=== PATIENT | male | born 1980 | race Caucasian/White ===

== ENCOUNTER 2016-11-30 12:30 | Outpatient (RCR) | payer MEDICAID | END 2017-02-11 13:29 | disposition home or self-care (01) | LOC: WSC 12:30 → WSPT 12:30 → WSC 02-11 13:29 | DX: M54.5 Low back pain (principal) | CPT/HCPCS: G0283-GP ==

== ENCOUNTER → 2017-04-22 | Outpatient (REF) ==
[2017-04-22 18:54] LABS: THYROID STIMULATING HORMONE 0.617 uIU/mL (0.465-4.680)
== END ==
LOC: ZLAB.WCH 18:04
PROVIDERS: Family Medicine
DX: Z01.89 Encounter for other specified special examinations (principal)

== ENCOUNTER → 2017-09-09 | Outpatient (CLI) | payer BC | LOC: COL.RAD 16:03 | DX: N50.3 Cyst of epididymis (principal) ==

== ENCOUNTER → 2017-10-19 | Outpatient (CLI) | payer BC | LOC: COL.RAD 14:19 | DX: M50.121 Cervical disc disorder at C4-C5 level with radiculopathy (principal) ==

== ENCOUNTER → 2018-07-26 | Outpatient (CLI) | payer BC | LOC: COL.RAD 06:54 | DX: M71.22 Synovial cyst of popliteal space [Baker], left knee (principal); M25.462 Effusion, left knee ==

== ENCOUNTER 2019-03-28 12:34 | Emergency (ER) | payer BC ==
[~2019-03-28] VITALS: Ht 172.7 cm; Wt 81.8 kg
[2019-03-28 12:40] VITALS: BP 152/97; TEMP 99
[2019-03-28] MEDS ORDERED: AMOXICILLIN 8751 TAB PO (12:42)
[2019-03-28] MEDS ORDERED: PRINIVIL40 MG PO (12:42)
[2019-03-28] MEDS ORDERED: NORVASC 5MG5 MG/TAB PO (12:43)
[2019-03-28] MEDS ORDERED: XANAX 1MG1 MG PO (12:43)
[2019-03-28] MEDS ORDERED: NORCO 325 MG-51 TAB PO (13:51)
[2019-03-28 14:09] VITALS: PULSE 86
== END 2019-03-28 14:08 | disposition home or self-care (01) ==
LOC: COL.ER 12:34
DX: S61.213A Laceration without foreign body of left middle finger without damage to nail, initial encounter (principal); I10 Essential (primary) hypertension; Z23 Encounter for immunization; W26.0XXA Contact with knife, initial encounter; Y92.009 Unspecified place in unspecified non-institutional (private) residence as the place of occurrence of the external cause

== ENCOUNTER → 2020-02-29 | Outpatient (CLI) | payer BC ==
[~2020-02-29] MED LIST: AMOXICILLIN 8751 TAB PO; NORCO 325 MG-51 TAB PO; NORVASC 5MG5 MG/TAB PO; PRINIVIL40 MG PO; XANAX 1MG1 MG PO
== END ==
LOC: COL.RAD 08:15
DX: M47.22 Other spondylosis with radiculopathy, cervical region (principal); M48.02 Spinal stenosis, cervical region; M48.061 Spinal stenosis, lumbar region without neurogenic claudication; M51.15 Intervertebral disc disorders with radiculopathy, thoracolumbar region

== ENCOUNTER 2021-01-19 09:38 | Emergency (ER) | payer BC ==
[~2021-01-19] VITALS: Ht 172.7 cm; Wt 84.1 kg
[2021-01-19 09:46] VITALS: TEMP 98.2
[2021-01-19] MEDS ORDERED: CEPHALEXIN500 M1 PO (10:48)
[2021-01-19 11:15] VITALS: BP 135/96; PULSE 88
== END 2021-01-19 11:00 | disposition home or self-care (01) ==
LOC: COL.ER 09:38
DX: S61.431A Puncture wound without foreign body of right hand, initial encounter (principal); F17.210 Nicotine dependence, cigarettes, uncomplicated; W26.0XXA Contact with knife, initial encounter

== ENCOUNTER 2021-10-29 16:30 | Outpatient (RCR) | payer BC ==
[~2021-10-29 16:30] MED LIST changes: +CEPHALEXIN500 M1 PO
== END 2021-11-09 | disposition home or self-care (01) ==
LOC: WSPT
DX: M54.50 Low back pain, unspecified (principal)

== ENCOUNTER 2021-12-09 11:00 | Outpatient (RCR) | payer BC | END 2021-12-10 | disposition home or self-care (01) | LOC: WSPT | DX: M54.50 Low back pain, unspecified (principal) | CPT/HCPCS: G0283-GP ==

== ENCOUNTER 2022-01-06 08:00 | Outpatient (RCR) | payer BC | END 2022-01-09 | disposition home or self-care (01) | LOC: WSPT | DX: M54.50 Low back pain, unspecified (principal) | CPT/HCPCS: G0283-GP ==

== ENCOUNTER 2022-02-16 08:00 | Outpatient (RCR) | payer BC | END 2022-02-16 16:00 | disposition home or self-care (01) | LOC: WSPT 08:00 | DX: M54.50 Low back pain, unspecified (principal) ==

== ENCOUNTER 2022-04-17 10:22 | Emergency (ER) | payer BC ==
[~2022-04-17] VITALS: Ht 172.7 cm; Wt 72.7 kg
[2022-04-17 10:26] VITALS: BP 163/99; TEMP 98.4
[2022-04-17 11:53] VITALS: PULSE 62
== END 2022-04-17 11:53 | disposition home or self-care (01) ==
LOC: COL.ER 10:22
DX: M54.2 Cervicalgia (principal); M25.552 Pain in left hip; M25.551 Pain in right hip; M54.50 Low back pain, unspecified; G89.29 Other chronic pain; F17.200 Nicotine dependence, unspecified, uncomplicated; Z79.891 Long term (current) use of opiate analgesic; X50.1XXA Overexertion from prolonged static or awkward postures, initial encounter

== ENCOUNTER 2022-05-10 13:52 | Emergency (ER) | payer BC ==
[~2022-05-10] VITALS: Ht 175.3 cm; Wt 72.7 kg
[2022-05-10 14:03] VITALS: TEMP 98.2
[2022-05-10 17:50] VITALS: BP 117/75; PULSE 71
== END 2022-05-10 17:53 | disposition home or self-care (01) ==
LOC: COL.ER 13:52
DX: L05.01 Pilonidal cyst with abscess (principal); Z87.891 Personal history of nicotine dependence
CPT/HCPCS: J0696

== ENCOUNTER 2022-06-08 09:47 | Emergency (ER) | payer BC ==
[~2022-06-08] VITALS: Ht 175.3 cm; Wt 74.1 kg
[2022-06-08 09:59] VITALS: BP 123/81; PULSE 83; TEMP 97.8
[2022-06-08] MEDS ORDERED: DAZIDOX10 MG PO (10:11)
[2022-06-08] MEDS ORDERED: KLONOPIN 1MG1 MG PO (10:11)
== END 2022-06-08 11:12 | disposition home or self-care (01) ==
LOC: COL.ER 09:47
DX: M54.12 Radiculopathy, cervical region (principal); G89.29 Other chronic pain; M54.9 Dorsalgia, unspecified; F17.200 Nicotine dependence, unspecified, uncomplicated
CPT/HCPCS: J1885; J2360

== ENCOUNTER 2023-06-25 19:58 | Emergency (ER) | payer SELFPAY ==
[~2023-06-25] VITALS: Ht 172.7 cm; Wt 81.8 kg
[2023-06-25 19:58] VITALS: TEMP 98.9
[~2023-06-25 19:58] MED LIST changes: +DAZIDOX10 MG PO; +KLONOPIN 1MG1 MG PO
[2023-06-25 20:17] LABS: BASO # 0.1 K/mm3 (0.0-0.2); BASO % 0.7 % (0.0-2.0); EOS # 0.2 K/mm3 (0.0-0.7); EOS % 1.2 % (0.0-4.0); GRAN # 8.7 K/mm3 (1.4-6.5); GRAN % 63.2 % (42.2-75.2); HEMATOCRIT 45.3 % (42.0-52.0); HEMOGLOBIN 15.5 g/dl (13.5-18.0); LYMPH # 3.8 K/mm3 (1.2-3.4); LYMPH % 27.4 % (20.0-51.0); MEAN CELL VOLUME 92 fl (80.0-100.0); MEAN CORPUSCULAR HEMOGLOBIN 32 pg (27-31); MEAN CORPUSCULAR HGB CONC 34 g/dl (33.0-37.0); MEAN PLATELET VOLUME 8.8 fl (7.4-10.4); MONO % 7.1 % (1.7-9.3); PLATELET COUNT 324 K/mm3 (130-400); RED BLOOD COUNT 4.92 M/mm3 (4.20-5.60); REDCELL DISTRIBUTION WIDTH-CV 11.9 % (11.5-14.5)
[2023-06-25 20:32] LABS: ALANINE AMINOTRANSFERASE 18 U/L (0-55); ALBUMIN 4.2 gm/dL (3.5-5.0); ALKALINE PHOSPHATASE 91 U/L (40-150); ANION GAP 15 mmol/L (7-16); AST,SGOT 15 U/L (5-34); BILIRUBIN,TOTAL 0.3 mg/dL (0.2-1.2); BLOOD UREA NITROGEN 12 mg/dL (9-21); C-REACTIVE PROTEIN 0.42 mg/dL (0.00-0.50); CALCIUM 9.6 mg/dL (8.4-10.2); CARBON DIOXIDE 21 mmol/L (22-29); CHLORIDE 106 mmol/L (98-107); CREATININE, serum 0.95 mg/dL (0.72-1.25); GLUCOSE 117 mg/dL (70-99); POTASSIUM 4.3 mmol/L (3.5-4.5); SODIUM 142 mmol/L (136-145); TOTAL PROTEIN 7.1 gm/dL (6.2-8.1)
[2023-06-25 20:35] LABS: ALCOHOL(ethanol),MEDICAL < 10 mg/dL (0-10)
[2023-06-25 20:53] LABS: TROPONIN-I < 0.010 ng/mL (0.00-0.033)
[2023-06-25 21:30] VITALS: BP 139/86; PULSE 81
== END 2023-06-25 21:41 | disposition home or self-care (01) ==
LOC: COL.ER 19:58
PROVIDERS: Nurse Practitioner Primary Care
DX: M54.2 Cervicalgia (principal); R25.1 Tremor, unspecified; G89.29 Other chronic pain; F41.9 Anxiety disorder, unspecified; M54.9 Dorsalgia, unspecified; Z79.899 Other long term (current) drug therapy; Z79.891 Long term (current) use of opiate analgesic; W10.8XXA Fall (on) (from) other stairs and steps, initial encounter

== ENCOUNTER → 2024-01-06 | Outpatient (CLI) | payer OTHER ==
[~2024-01-06] MED LIST changes: +Gadoterate 15 ML VIAL IV ONE
== END ==
LOC: COL.RAD 11:39
DX: M47.816 Spondylosis without myelopathy or radiculopathy, lumbar region (principal); M43.10 Spondylolisthesis, site unspecified
CPT/HCPCS: A9575

== ENCOUNTER 2024-07-04 06:45 | Emergency (ER) | payer OTHER ==
[~2024-07-04] VITALS: Ht 170.2 cm; Wt 79.5 kg
[~2024-07-04 06:45] MED LIST changes: -Gadoterate 15 ML VIAL IV ONE
[2024-07-04 06:50] VITALS: TEMP 97.8
[2024-07-04] MEDS ORDERED: NS 1,000 ML IV ONE (07:15)
[2024-07-04] MEDS ORDERED: fentaNYL 50 MCG/ML 2 ML VIAL IV ONE (07:15)
[2024-07-04] MEDS ORDERED: Ondansetron 4 MG/2 ML VIAL IV ONE (07:15)
[2024-07-04] MEDS ORDERED: Iohexol 300 - 100 ML VIAL IV ONE (08:00)
[2024-07-04] MEDS ORDERED: NS 100 ML IV SCH (08:00)
[2024-07-04 08:01] LABS: BASO # 0.1 K/mm3 (0.0-0.2); BASO % 0.7 % (0.0-2.0); EOS # 0.2 K/mm3 (0.0-0.7); EOS % 1.6 % (0.0-4.0); GRAN # 7.9 K/mm3 (1.4-6.5); GRAN % 68.6 % (42.2-75.2); HEMATOCRIT 46.4 % (42.0-52.0); HEMOGLOBIN 15.7 g/dl (13.5-18.0); LYMPH # 2.5 K/mm3 (1.2-3.4); LYMPH % 21.9 % (20.0-51.0); MEAN CELL VOLUME 92 fl (80.0-100.0); MEAN CORPUSCULAR HEMOGLOBIN 31 pg (27-31); MEAN CORPUSCULAR HGB CONC 34 g/dl (33.0-37.0); MEAN PLATELET VOLUME 9.3 fl (7.4-10.4); MONO # 0.8 K/mm3 (0.1-0.6); PLATELET COUNT 285 K/mm3 (130-400); RED BLOOD COUNT 5.02 M/mm3 (4.20-5.60); REDCELL DISTRIBUTION WIDTH-CV 12.3 % (11.5-14.5)
[2024-07-04 08:24] LABS: ALBUMIN 4.3 g/dL (3.5-5.0); BILIRUBIN,TOTAL 0.6 mg/dL (0.2-1.2); CALCIUM 9.9 mg/dL (8.4-10.2); CREATININE, serum 0.98 mg/dL (0.72-1.25); POTASSIUM 4.4 mEq/L (3.5-4.5); TOTAL PROTEIN 7.7 g/dl (6.2-8.1)
[2024-07-04 08:30] LABS: TROPONIN-I 0.015 ng/mL (0.00-0.033)
[2024-07-04 09:24] LABS: URINE APPEARANCE CLEAR (CLEAR/HAZY); URINE BLOOD NEGATIVE (NEGATIVE); URINE COLOR YELLOW (YELLOW); URINE GLUCOSE NEGATIVE (NEGATIVE); URINE KETONE NEGATIVE (NEGATIVE); URINE NITRATE NEGATIVE (NEGATIVE); URINE PROTEIN(semi-quant) NEGATIVE (NEGATIVE); URINE UROBILINOGEN 0.2 E.U/dL (0.2-1.0)
[2024-07-04 10:15] LABS: COLLECTION METHOD CLEAN CATCH
[2024-07-04] MEDS ORDERED: ZOFRAN ODT4 MG PO (10:23)
[2024-07-04] MEDS ORDERED: NORCO 325 MG-51 TAB PO (10:23)
[2024-07-04 11:19] VITALS: BP 152/105; PULSE 71
== END 2024-07-04 11:18 | disposition home or self-care (01) ==
LOC: COL.ER 06:45
PROVIDERS: Family Medicine
DX: K52.9 Noninfective gastroenteritis and colitis, unspecified (principal)
CPT/HCPCS: J2405; J3010; J7030; Q9967